=== PATIENT | female | born 1965 | race Caucasian/White ===

== ENCOUNTER 2016-10-05 23:30 | Emergency (ER) | payer SELFPAY ==
--- NOTE | 2016-10-06 00:21 | ER Document Report ---
ED General - General Chief Complaint: Chest Pain Stated Complaint: CHEST PAIN AND ARM PAIN Time Seen by Provider: 10/06/16 00:07 Notes: Patient is a very pleasant 51-year-old female who presents with complaint of chest pain and arm pain that started while she was working out. Patient says that she was doing assisted pull-ups. She says she works out every day and typically does not have pain. She says while she was doing pull-ups she developed pain into her upper chest and shoulders and down her arms. Pain then became severe into her arms and she felt unwell. She did not have nausea. No difficulty breathing. When she got home she took an aspirin and the pain has since resolved. No numbness into the hands. No history of cardiac disease. No family history of cardiac disease. She takes no medications and is otherwise healthy. She does not smoke. TRAVEL OUTSIDE OF THE [place] IN LAST 30 DAYS: No - Related Data Allergies/Adverse Reactions: Sulfa (Sulfonamide Antibiotics) Allergy (Verified 10/05/16 23:50) Past Medical History - Social History Smoking Status: Never Smoker Frequency of alcohol use: None Drug Abuse: None Family History: Reviewed & Not Pertinent Patient has suicidal ideation: No Patient has homicidal ideation: No Renal/ Medical History: Denies: Hx Peritoneal Dialysis Review of Systems - Review of Systems Notes: My Normal Review Basic REVIEW OF SYSTEMS: CONSTITUTIONAL : Denies fever, chills, or sweats. Denies recent illness. EENT: Denies eye, ear, throat, or mouth pain or symptoms. Denies nasal or sinus congestion. CARDIOVASCULAR: Had chest pain RESPIRATORY: Denies cough, cold, or chest congestion. Denies shortness of breath, difficulty breathing, or wheezing. GASTROINTESTINAL: Denies abdominal pain. Denies nausea, vomiting, or diarrhea. Denies constipation. Last BM: MUSCULOSKELETAL: Upper chest and arm pain. SKIN: Denies rash or skin lesions. NEUROLOGICAL: Denies altered mental status or loss of consciousness. Denies headache. Denies weakness or paralysis or loss of use of either side. Denies problems with gait or speech. Denies sensory or motor loss. ALL OTHER SYSTEMS REVIEWED AND NEGATIVE. Physical Exam - Vital signs Vitals: Temp Pulse Resp BP Pulse Ox 97.5 F 68 18 122/65 100 10/05/16 23:46 10/05/16 23:46 10/05/16 23:46 10/05/16 23:46 10/05/16 23:46 - Notes Notes: General Appearance: Well nourished, alert, cooperative, no acute distress, no obvious discomfort. Vitals: reviewed, See vital signs table. Head: no swelling or tenderness to the head Eyes: PERRL, EOMI, Conjuctiva clear Mouth: No decreasd moisture Neck: Supple, no neck tenderness Lungs: No wheezing, No rales, No rhonci, No accessory muscle use, good air exchange bilaterally. Heart: Normal rate, Regular rythm, No murmur, no rub Chest wall: No reproducible tenderness to palpation of the chest wall except for some mild tenderness to the right upper chest wall. Abdomen: Normal BS, soft, No rigidity, No abdominal tenderness, No guarding, no rebound, no abdominal masses, no organomegaly Extremities: strength 5/5 in all extremities, good pulses in all extremities, no swelling or tenderness in the extremities, no edema. Skin: warm, dry, appropriate color, no rash Neuro: speech clear, oriented x 3, normal affect, responds appropriately to questions. Normal distal sensation in the upper extremities. Equal bilateral upper extremity radial pulses. Course - Re-evaluation Re-evalutation: 10/06/16 03:17 I initially spoke with Dr. Morales when her initial troponin was in the indeterminate range. She requested that I get a repeat troponin. The peak troponin is much higher. I did call back Dr. Morales who agrees to accept the patient for transfer. Patient was based on half inch of Nitropaste. This relieved her chest tightness. When I told her about the elevating troponin she started to get some chest tightness back and therefore will increase to 1 inch. Patient will be closely monitored until transfer. 10/06/16 09:40 I just did a reevaluation of the patient. Should her chest tightness is completely improved now with the nitro. She had a slight headache which is improved with Tylenol. She looks well. She is medically stable for transfer to [facility]. Ambulance is on its way to transfer her there. Dictation of this chart was performed using voice recognition software; therefore, there may be some unintended grammatical errors. - Vital Signs Vital signs: Temp Pulse Resp BP Pulse Ox 97.5 F 68 14 105/56 L 98 10/05/16 23:46 10/05/16 23:46 10/06/16 06:01 10/06/16 06:01 10/06/16 06:01 - Laboratory Result Diagrams: 10/06/16 00:23 10/06/16 00:23 Laboratory results interpreted by me: 10/06/16 02:20 Urine Ketones TRACE H Ur Leukocyte Esterase MODERATE H - EKG Interpretation by Me Additional EKG results interpreted by me: 10/06/16 00:18 EKG is reviewed and interpreted by me. EKG shows normal sinus rhythm with a rate of [address] segment elevation or depression. No ischemic T-wave inversions. DC interval, QRS duration, QTc intervals are within normal range. No old EKG available for comparison. 10/06/16 01:29 EKG #2 is reviewed and interpreted by me. EKG shows normal sinus rhythm with a rate of [address] segment elevation or depression. No ischemic T-wave inversions. DC interval, QRS duration are within normal range. QTc interval is slightly prolonged. Discharge - Discharge Clinical Impression: NSTEMI (non-ST elevated myocardial infarction) Condition: Stable Disposition: [facility]
[2016-10-06 00:30] LABS: ABSOLUTE EOSINOPHILS # (AUTO) 0.1 10^3/uL (0.0-0.6); ABSOLUTE MONOCYTES (AUTO) 0.6 10^3/uL (0.1-1.4); ABSOLUTE NEUT (AUTO) 5.8 10^3/uL (1.7-8.2); BASOPHILS % (AUTO) 0.5 % (0-2); EOSINOPHILS % (AUTO) 1.2 % (0-6); HEMATOCRIT 41.4 % (36.0-47.0); HEMOGLOBIN 13.5 g/dL (12.0-15.5); HGB HCT DIFFERENCE -0.9; LYMPHOCYTES % (AUTO) 13.9 % (13-45); MEAN CORPUSCULAR HEMOGLOBIN 28.4 pg (27.0-33.4); MEAN CORPUSCULAR HGB CONC 32.6 g/dL (32.0-36.0); MEAN CORPUSCULAR VOLUME 87 fl (80-97); MONOCYTES % (AUTO) 7.9 % (3-13); RED BLOOD COUNT 4.76 10^6/uL (3.72-5.28); RED CELL DISTRIBUTION WIDTH 12.8 % (11.5-14.0); SEGMENTED NEUTROPHILS % (AUTO) 76.5 % (42-78); WHITE BLOOD COUNT 7.5 10^3/uL (4.0-10.5)
[2016-10-06 00:42] LABS: ALANINE AMINOTRANSFERASE 36 U/L (9-52); ALKALINE PHOSPHATASE 95 U/L (38-126); ASPARTATE AMINO TRANSFERASE 33 U/L (14-36); BILIRUBIN,DIRECT 0.2 mg/dL (0.0-0.4); BILIRUBIN,TOTAL 0.5 mg/dL (0.2-1.3); BLOOD UREA NITROGEN 11 mg/dL (7-20); CALCIUM 9.8 mg/dL (8.4-10.2); CREATINE KINASE 134 U/L (30-135); CREATININE RESULT 0.68 mg/dL (0.52-1.25)
[2016-10-06 00:46] LABS: ALBUMIN 4.7 g/dL (3.5-5.0); ANION GAP 10 (5-19); CARBON DIOXIDE 28 mmol/L (22-30); CHLORIDE 103 mmol/L (98-107); GLUCOSE 105 mg/dL (75-110); POTASSIUM 4.3 mmol/L (3.6-5.0); SODIUM 141.1 mmol/L (137-145); TOTAL PROTEIN 7.4 g/dL (6.3-8.2)
--- NOTE | 2016-10-06 00:51 | RADIOLOGY REPORT (SQ) ---
EXAM DESCRIPTION: CHEST SINGLE VIEW COMPLETED DATE/TIME: 10/06/2016 12:37 am REASON FOR STUDY: chest pain COMPARISON: None. EXAM PARAMETERS: NUMBER OF VIEWS: One view. TECHNIQUE: Single frontal radiographic view of the chest acquired. RADIATION DOSE: NA LIMITATIONS: None. FINDINGS: LUNGS AND PLEURA: No opacities, masses or pneumothorax. No pleural effusion. MEDIASTINUM AND HILAR STRUCTURES: No masses. Contour normal. HEART AND VASCULAR STRUCTURES: Heart normal in size. Normal vasculature. BONES: No acute findings. HARDWARE: None in the chest. OTHER: No other significant finding. IMPRESSION: NO ACUTE RADIOGRAPHIC FINDING IN THE CHEST. TECHNICAL DOCUMENTATION: JOB ID: [id number]
[2016-10-06 00:54] LABS: CREATINE KINASE MB 1.53 ng/mL (<4.55)
[2016-10-06 01:05] LABS: TROPONIN I 0.06 ng/mL
[2016-10-06] MEDS ORDERED: NITROGLYCERIN 2% OINTMENT 1 GM PACKET TP ONE ×2 (01:47→03:16)
[2016-10-06] MEDS ORDERED: ENOXAPARIN SODIUM INJ 60 MG/0.6 ML DISP.SYRIN SUBCUT SCH ×2 (04:15)
--- NOTE | 2016-10-06 05:58 | EKG REPORT ---
SEVERITY:- BORDERLINE ECG - SINUS RHYTHM BORDERLINE INFERIOR Q WAVES : Confirmed by: Preethi Mac MD 06-Oct-2016 05:57:40
--- NOTE | 2016-10-06 05:58 | EKG REPORT ---
SEVERITY:- BORDERLINE ECG - SINUS RHYTHM BORDERLINE INFERIOR Q WAVES : Confirmed by: Preethi Mac MD 06-Oct-2016 05:57:49
[2016-10-06 07:39] LABS: APPEARANCE,URINE CLEAR; BILIRUBIN,URINE NEGATIVE (NEGATIVE); GLUCOSE, URINE NEGATIVE (NEGATIVE); KETONES,URINE TRACE mg/dL (NEGATIVE); LEUKOCYTE ESTERASE,URINE MODERATE (NEGATIVE); NITRITE,URINE NEGATIVE (NEGATIVE); PROTEIN,URINE NEGATIVE (NEGATIVE); URINE SPECIFIC GRAVITY 1.011; UROBILINOGEN,URINE NEGATIVE mg/dL (<2.0)
[2016-10-06] MEDS ORDERED: ACETAMINOPHEN 325 MG TABLET PO ONE (08:33)
[2016-10-06 10:02] VITALS: BP 111/74
== END 2016-10-06 10:03 | disposition short-term general hospital (02) ==
LOC: ER 23:30
DX: I21.4 Non-ST elevation (NSTEMI) myocardial infarction (principal); Z88.2 Allergy status to sulfonamides; R07.89 Other chest pain; R51 Headache
CPT/HCPCS: 93005 ×2; 99285; 96372; 36415; 82553; 82550; 85025; 80053; 81001; 84484; 71010; 93010 ×2; J1650

== ENCOUNTER 2016-11-12 19:23 | Emergency (ER) | payer MEDICAID, OTHER ==
[2016-11-12] MEDS ORDERED: ASPIRIN 81 MG TABLET, CHEWABLE PO ONE (21:25)
--- NOTE | 2016-11-12 21:26 | ER Document Report ---
ED Cardiac - General Mode of Arrival: Ambulatory Information source: Patient TRAVEL OUTSIDE OF THE [place] IN LAST 30 DAYS: No - HPI Patient complains to provider of: Chest pain Quality of pain: Sharp Chest pain radiation location: Right arm Similar symptoms previously: Yes Recently seen / treated by doctor: Yes <ONDINA BERNARDO - Last Filed: 11/12/16 23:24> <MARCIO MILTON - Last Filed: 11/13/16 00:06> - General Chief Complaint: Chest Pain Stated Complaint: chest pain Time Seen by Provider: 11/12/16 21:25 Notes: Patient is a 51-year-old female who presents to the emergency department today with complaints of chest pain that has been off and on all day today. Patient describes the pain as a sharp pain which began underneath her right arm. 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 Patient states her symptoms that day were somewhat similar to the symptoms she is currently having. Patient is on Brilinta. Patient states she was chasing her dogs when the symptoms began today. Patient took baby aspirin today prior to arrival. (ONDINA BERNARDO) - Related Data Allergies/Adverse Reactions: Sulfa (Sulfonamide Antibiotics) Allergy (Verified 10/05/16 23:50) Past Medical History - General Information source: Patient, [facility] Records - Social History Smoking Status: Never Smoker Cigarette use (# per day): No Drug Abuse: Cocaine - for a brief period of time during her 20s Lives with: Family Family History: Reviewed & Not Pertinent - Past Medical History Cardiac Medical History: Reports: Other - Spontaneous coronary artery dissection Past Surgical History: Reports: Hx Orthopedic Surgery - rt shoulder - Immunizations Hx Diphtheria, Pertussis, Tetanus Vaccination: Yes <ONDINA BERNARDO - Last Filed: 11/12/16 23:24> Review of Systems - Review of Systems Constitutional: No symptoms reported EENT: No symptoms reported Cardiovascular: See HPI, Chest pain - with associated right pain in his under arm Respiratory: No symptoms reported Gastrointestinal: No symptoms reported Genitourinary: No symptoms reported Female Genitourinary: No symptoms reported Musculoskeletal: No symptoms reported Skin: No symptoms reported Hematologic/Lymphatic: No symptoms reported Neurological/Psychological: No symptoms reported -: Yes All other systems reviewed and negative <ONDINA BERNARDO - Last Filed: 11/12/16 23:24> Physical Exam <ONDINA BERNARDO - Last Filed: 11/12/16 23:24> <MARCIO MILTON - Last Filed: 11/13/16 00:06> - Notes Notes: PHYSICAL EXAM GENERAL: Alert, interacts well. No acute distress. HEAD: Normocephalic, atraumatic. EYES: Pupils equal, round, and reactive to light. Extraocular movements intact. ENT: Oral mucosa moist, tongue midline. NECK: Full range of motion. Supple. Trachea midline. LUNGS: Clear to auscultation bilaterally, no wheezes, rales, or rhonchi. No respiratory distress. HEART: Regular rate and rhythm. No murmurs, gallops, or rubs. ABDOMEN: Soft, non-tender. Non-distended. Bowel sounds present in all 4 quadrants. EXTREMITIES: Moves all 4 extremities spontaneously. No edema, radial and dorsalis pedis pulses 2/4 bilaterally. No cyanosis. NEUROLOGICAL: Alert and oriented x3. Normal speech. PSYCH: Normal affect, normal mood. SKIN: Warm, dry, normal turgor. No rashes or lesions noted. (ONDINA BERNARDO) Course - Laboratory Result Diagrams: 11/12/16 21:30 11/12/16 21:30 <ONDINA BERNARDO - Last Filed: 11/12/16 23:24> - Laboratory Result Diagrams: 11/12/16 21:30 11/12/16 21:30 <MARCIO MILTON - Last Filed: 11/13/16 00:06> - Re-evaluation Re-evalutation: 11/12/16 23:22 Dr. Fierro - [facility] returned call, he states there is no need for transfer. Recommends trending troponin levels. (ONDINA BERNARDO) 11/13/16 00:04 Initial cardiac enzymes negative, EKG is nonischemic, patient was stented for spontaneous coronary artery dissection not an atherosclerotic lesion, patient has a heart score of 3, this is relatively low risk, Dr. Fierro recommends trending a 4 hour troponin in a low heart score patient. Patient will Be kept in the emergency department for a second troponin that will be drawn at approximately 130. If this is negative she will be allowed to go home and follow-up with cardiology from [facility] as an outpatient. (MARCIO MILTON) - EKG Interpretation by Me Additional EKG results interpreted by me: 11/13/16 00:05 EKG shows sinus rhythm at a rate of 70, normal axis, normal intervals, no ST segment elevations or depressions, no T-wave inversions per my interpretation. ( MARCIO MILTON) Discharge <ONDINA BERNARDO - Last Filed: 11/12/16 23:24> <MARCIO MILTON - Last Filed: 11/13/16 00:06> - Discharge Clinical Impression: Chest pain with low risk of acute coronary syndrome Condition: Stable Disposition: HOME, SELF-CARE Additional Instructions: I do not know what caused her chest pain today. You had 2 negative sets of cardiac enzymes. Please follow-up with the handicrafts teacher from [facility] as an outpatient. I spoke with Dr. Fierro this evening and he said you could call [phone] to arrange a follow-up appointment if you had 2 negative sets of troponins. Referrals: SHINE VALE MD [Primary Care Provider] - Follow up as needed Scribe Attestation: 11/13/16 00:06 I personally performed the services described in the documentation, reviewed and edited the documentation which was dictated to the scribe in my presence, and it accurately records my words and actions. (MARCIO MILTON) Scribe Documentation - Scribe Written by Enrique:: Enrique Brewer, 11/12/2016 2142 acting as scribe for :: Nay <ONDINA BERNARDO - Last Filed: 11/12/16 23:24>
[2016-11-12 21:44] LABS: ABSOLUTE EOSINOPHILS # (AUTO) 0.1 10^3/uL (0.0-0.6); ABSOLUTE LYMPHOCYTES (AUTO) 1.3 10^3/uL (0.5-4.7); ABSOLUTE MONOCYTES (AUTO) 0.6 10^3/uL (0.1-1.4); ABSOLUTE NEUT (AUTO) 3.2 10^3/uL (1.7-8.2); BASOPHILS % (AUTO) 0.8 % (0-2); EOSINOPHILS % (AUTO) 2.7 % (0-6); HEMATOCRIT 39.5 % (36.0-47.0); HEMOGLOBIN 13.6 g/dL (12.0-15.5); HGB HCT DIFFERENCE 1.3; LYMPHOCYTES % (AUTO) 24.3 % (13-45); MEAN CORPUSCULAR HGB CONC 34.4 g/dL (32.0-36.0); MEAN CORPUSCULAR VOLUME 87 fl (80-97); MONOCYTES % (AUTO) 10.5 % (3-13); RED BLOOD COUNT 4.53 10^6/uL (3.72-5.28); RED CELL DISTRIBUTION WIDTH 13.1 % (11.5-14.0); SEGMENTED NEUTROPHILS % (AUTO) 61.7 % (42-78); WHITE BLOOD COUNT 5.3 10^3/uL (4.0-10.5)
[2016-11-12 22:08] LABS: ALANINE AMINOTRANSFERASE 29 U/L (9-52); ALBUMIN 4.4 g/dL (3.5-5.0); ALKALINE PHOSPHATASE 124 U/L (38-126); ANION GAP 9 (5-19); ASPARTATE AMINO TRANSFERASE 31 U/L (14-36); BILIRUBIN,DIRECT 0.3 mg/dL (0.0-0.4); BILIRUBIN,TOTAL 0.3 mg/dL (0.2-1.3); BLOOD UREA NITROGEN 14 mg/dL (7-20); CALCIUM 9.8 mg/dL (8.4-10.2); CARBON DIOXIDE 29 mmol/L (22-30); CHLORIDE 102 mmol/L (98-107); CREATINE KINASE 60 U/L (30-135); CREATININE RESULT 0.72 mg/dL (0.52-1.25); GLUCOSE 91 mg/dL (75-110); SODIUM 140.2 mmol/L (137-145); TOTAL PROTEIN 6.9 g/dL (6.3-8.2)
--- NOTE | 2016-11-12 22:17 | RADIOLOGY REPORT (SQ) ---
EXAM DESCRIPTION: CHEST SINGLE VIEW COMPLETED DATE/TIME: 11/12/2016 9:40 pm REASON FOR STUDY: chest pain, h/o SCAD COMPARISON: 10/06/2016 EXAM PARAMETERS: NUMBER OF VIEWS: One view. TECHNIQUE: Single frontal radiographic view of the chest acquired. RADIATION DOSE: NA LIMITATIONS: None. FINDINGS: LUNGS AND PLEURA: No opacities, masses or pneumothorax. No pleural effusion. MEDIASTINUM AND HILAR STRUCTURES: No masses. Contour normal. HEART AND VASCULAR STRUCTURES: Heart normal in size. Normal vasculature. BONES: No acute findings. HARDWARE: None in the chest. OTHER: No other significant finding. IMPRESSION: NO ACUTE RADIOGRAPHIC FINDING IN THE CHEST. TECHNICAL DOCUMENTATION: JOB ID: [id number]
[2016-11-12 22:20] LABS: CREATINE KINASE MB 0.52 ng/mL (<4.55); TROPONIN I < 0.012 ng/mL
[2016-11-13 03:00] VITALS: BP 100/54
--- NOTE | 2016-11-13 03:00 | ER Document Report ---
Doctor's Note Notes: 11/13/16 02:59 Patient checked out to me by Dr. Worley. She informed that she spoke with Dr. Fierro, the ice cream scooper. He said if the patient's repeat troponin was stool completely negative and the patient be discharged home with close follow-up at the ice cream scooper's office. Dr. aviles currently has a patient's discharged instructions typed up in case this was the case. Patient's repeat troponin did come back negative. I did recheck the patient. She is currently not having pain. She will be discharged home. She is encouraged to return to ER immediately she has recurrent pain, difficulty breathing, or feels unwell. I encouraged her to call her ice cream scooper in the a.m. Patient agrees with plan will be discharged home. Dictation of this chart was performed using voice recognition software; therefore, there may be some unintended grammatical errors.
--- NOTE | 2016-11-13 23:19 | EKG REPORT ---
SEVERITY:- NORMAL ECG - SINUS RHYTHM : Confirmed by: Los Chang 13-Nov-2016 23:18:33
== END 2016-11-13 03:16 | disposition home or self-care (01) ==
LOC: ER 19:23
DX: R07.9 Chest pain, unspecified (principal); Z88.2 Allergy status to sulfonamides
CPT/HCPCS: 36415; 71010; 80053; 82550; 82553; 84484; 85025; 85610; 93005; 93010; 99285